=== PATIENT | male | born 1960 | race Caucasian/White ===

== ENCOUNTER 2018-10-24 10:00 | Outpatient (RCR) | payer BC ==
[2018-08-06 09:27] VITALS: BP 142/97
[2018-08-06] MEDS: LIDOCAINE/SOD BICARB 8.4% SYR ID PRN (09:36)
[2018-08-06] MEDS: [UNRECOGNIZED DRUG - MIXTURE] IVPB PRN (09:38)
[2018-08-13 10:53] VITALS: BP 125/77
[2018-08-13] MEDS: [UNRECOGNIZED DRUG - MIXTURE] IVPB PRN (11:02)
[2018-08-13] MEDS: LIDOCAINE/SOD BICARB 8.4% SYR ID PRN (11:02)
[2018-08-22] MEDS: LIDOCAINE/SOD BICARB 8.4% SYR ID PRN (08:24)
[2018-08-22] MEDS: [UNRECOGNIZED DRUG - MIXTURE] IVPB PRN (08:25)
[2018-08-22 08:26] VITALS: BP 112/78
[2018-08-28] MEDS: LIDOCAINE/SOD BICARB 8.4% SYR ID PRN (08:24)
[2018-08-28] MEDS: [UNRECOGNIZED DRUG - MIXTURE] IVPB PRN (08:24)
[2018-08-28 08:28] VITALS: BP 131/84
[2018-09-05] MEDS: [UNRECOGNIZED DRUG - MIXTURE] IVPB PRN (08:17)
[2018-09-05 08:18] VITALS: BP 136/89
[2018-09-05] MEDS: LIDOCAINE/SOD BICARB 8.4% SYR ID PRN (08:18)
[2018-09-12] MEDS: [UNRECOGNIZED DRUG - MIXTURE] IVPB PRN (10:39)
[2018-09-12] MEDS: LIDOCAINE/SOD BICARB 8.4% SYR ID PRN (10:45)
[2018-09-12 10:49] VITALS: BP 126/74
[2018-09-18] MEDS: [UNRECOGNIZED DRUG - MIXTURE] IVPB PRN (08:27)
[2018-09-18] MEDS: LIDOCAINE/SOD BICARB 8.4% SYR ID PRN (08:28)
[2018-09-18 08:30] VITALS: BP 126/91
[2018-09-26] MEDS: LIDOCAINE/SOD BICARB 8.4% SYR ID PRN (14:22)
[2018-09-26] MEDS: [UNRECOGNIZED DRUG - MIXTURE] IVPB PRN (14:26)
[2018-09-26 14:27] VITALS: BP 105/60
[2018-09-26 14:46] VITALS: BP 105/71
[2018-10-02 14:02] VITALS: BP 154/90
[2018-10-02] MEDS: LIDOCAINE/SOD BICARB 8.4% SYR ID PRN (14:08)
[2018-10-02] MEDS: [UNRECOGNIZED DRUG - MIXTURE] IVPB PRN (14:20)
[2018-10-09 14:20] VITALS: BP 126/92
[2018-10-09] MEDS: [UNRECOGNIZED DRUG - MIXTURE] IVPB PRN (14:20)
[2018-10-09] MEDS: LIDOCAINE/SOD BICARB 8.4% SYR ID PRN (14:21)
[2018-10-14 14:55] VITALS: BP 134/87
[2018-10-14] MEDS: [UNRECOGNIZED DRUG - MIXTURE] IVPB PRN (15:49)
[2018-10-14] MEDS: LIDOCAINE/SOD BICARB 8.4% SYR ID PRN (15:49)
[~2018-10-24 10:00] MED LIST: ADV250/50 INH; ASPI-1471 PO; ASPI-715 PO; ASPI81TA94 PO; ATOR10TA65 PO; BUDE10.25 IH; CALC-965 PO; CIP500 PO; DEXTROSE 5%(*) 100 ML BAG 100 ML IVPB PRN; FLUT16SP19 NS; FLUT1DIS27 IH; FLUT1DIS28 IH; FLUT9.9S; GELA600C5 PO; IBUP200C74 PO; LEVO-85 PO; LEVO750T44 PO; LISI-362 PO; LISI5TAB25 PO; MON10 PO; MONT10TA PO; MONT10TA4 PO; NITR0.4T3 SL; NS(*) 0.9% 100 ML BAG 100 ML IVPB PRN; OMEG500C7 PO; PRAV40TA78 PO; PRED20TA6 PO; ROS10 PO; SILD25TA6 PO; SUMA100T32 PO; TRI40I IM; [UNRECOGNIZED DRUG - CODE] IV; [UNRECOGNIZED DRUG - MIXTURE] IVPB PRN
[2018-10-24 10:14] VITALS: BP 128/85
[2018-10-24] MEDS: LIDOCAINE/SOD BICARB 8.4% SYR ID PRN (10:26)
[2018-10-24] MEDS: [UNRECOGNIZED DRUG - MIXTURE] IVPB PRN (10:26)
[2018-10-29] MEDS ORDERED: TRI40I INTRA-ART (11:40)
[2018-11-01] MEDS: LIDOCAINE/SOD BICARB 8.4% SYR ID PRN (08:30)
[2018-11-01] MEDS: [UNRECOGNIZED DRUG - MIXTURE] IVPB PRN (08:30)
[2018-11-01 08:44] VITALS: BP 137/96
== END 2018-11-03 ==
LOC: SPU 10:00
PROVIDERS: ATTEND Emergency Medicine
DX: E88.01 Alpha-1-antitrypsin deficiency (principal)
CPT/HCPCS: 96365; 96366; J0256

== ENCOUNTER 2019-01-29 08:00 | Outpatient (RCR) | payer BC ==
[2018-11-08 11:45] VITALS: BP 125/91
[2018-11-08] MEDS: [UNRECOGNIZED DRUG - MIXTURE] IVPB PRN (11:57)
[2018-11-08 11:58] LABS: PLATELET COUNT, AUTOMATED 274 K/uL (150-450)
[2018-11-26] MEDS: [UNRECOGNIZED DRUG - MIXTURE] IVPB PRN (15:29)
[2018-11-26] MEDS: LIDOCAINE/SOD BICARB 8.4% SYR ID PRN (15:29)
[2018-11-26 15:30] VITALS: BP 142/78
[2018-12-03 14:06] VITALS: BP 126/77
[2018-12-03] MEDS: [UNRECOGNIZED DRUG - MIXTURE] IVPB PRN (14:08)
[2018-12-03] MEDS: LIDOCAINE/SOD BICARB 8.4% SYR ID PRN (14:08)
[2018-12-12] MEDS: LIDOCAINE/SOD BICARB 8.4% SYR ID PRN (08:22)
[2018-12-12] MEDS: [UNRECOGNIZED DRUG - MIXTURE] IVPB PRN (08:22)
[2018-12-12 08:31] VITALS: BP 136/95
[2018-12-19] MEDS: [UNRECOGNIZED DRUG - MIXTURE] IVPB PRN (14:30)
[2018-12-19] MEDS: LIDOCAINE/SOD BICARB 8.4% SYR ID PRN (14:31)
[2018-12-19 14:32] VITALS: BP 134/90
[2018-12-26 13:11] VITALS: BP 152/92
[2018-12-26] MEDS: LIDOCAINE/SOD BICARB 8.4% SYR ID PRN (13:18)
[2018-12-26] MEDS: [UNRECOGNIZED DRUG - MIXTURE] IVPB PRN (13:19)
[2018-12-26 14:36] VITALS: BP 129/85
[2019-01-02 08:43] VITALS: BP 128/84
[2019-01-02] MEDS: [UNRECOGNIZED DRUG - MIXTURE] IVPB PRN (08:59)
[2019-01-02] MEDS: LIDOCAINE/SOD BICARB 8.4% SYR ID PRN (08:59)
[2019-01-09] MEDS: LIDOCAINE/SOD BICARB 8.4% SYR ID PRN (15:38)
[2019-01-09] MEDS: [UNRECOGNIZED DRUG - MIXTURE] IVPB PRN (15:38)
[2019-01-09 15:47] VITALS: BP 140/82
[2019-01-17] MEDS: [UNRECOGNIZED DRUG - MIXTURE] IVPB PRN (09:07)
[2019-01-17 09:11] VITALS: BP 138/76
[2019-01-17] MEDS: LIDOCAINE/SOD BICARB 8.4% SYR ID PRN (09:27)
[2019-01-17 10:40] VITALS: BP 129/85
[2019-01-21 12:27] VITALS: BP 132/88
[2019-01-21] MEDS: [UNRECOGNIZED DRUG - MIXTURE] IVPB PRN (12:38)
[2019-01-21] MEDS: LIDOCAINE/SOD BICARB 8.4% SYR ID PRN (12:38)
[~2019-01-29 08:00] MED LIST changes: -ROS10 PO; +ROSU10TA PO; +TRI40I INTRA-ART; +[UNRECOGNIZED DRUG - MIXTURE] IVPB PRN; -[UNRECOGNIZED DRUG - MIXTURE] IVPB PRN
--- NOTE | 2019-01-29 08:28 | NUR ---
Pt completed initial HADS. No concerns, both A & D in normal range.
[2019-01-29 08:31] VITALS: BP 133/86
[2019-01-29] MEDS: LIDOCAINE/SOD BICARB 8.4% SYR ID PRN (08:38)
[2019-01-29] MEDS: [UNRECOGNIZED DRUG - MIXTURE] IVPB PRN (08:43)
== END 2019-02-05 ==
LOC: SPU 08:00
PROVIDERS: ATTEND Emergency Medicine
DX: E88.01 Alpha-1-antitrypsin deficiency (principal); J96.11 Chronic respiratory failure with hypoxia; J43.1 Panlobular emphysema
CPT/HCPCS: 85025; 96365; 96366; 96374; J0256; 82040; 82247; 82310; 82374; 82435; 82565; 82947; 84075; 84132; 84155; 84295; 84450; 84460; 84520

== ENCOUNTER 2019-02-06 07:45 | Outpatient (RCR) | payer BC ==
[~2019-02-06 07:45] MED LIST changes: -[UNRECOGNIZED DRUG - MIXTURE] IVPB PRN
[2019-02-06] MEDS: [UNRECOGNIZED DRUG - MIXTURE] IVPB PRN (08:25)
[2019-02-06] MEDS: LIDOCAINE/SOD BICARB 8.4% SYR ID PRN (08:28)
[2019-02-12 12:17] VITALS: BP 112/80
[2019-02-12] MEDS: LIDOCAINE/SOD BICARB 8.4% SYR ID PRN (12:25)
[2019-02-12] MEDS: [UNRECOGNIZED DRUG - MIXTURE] IVPB PRN (12:26)
[2019-02-12 13:29] VITALS: BP_SYST 124; BP_SYST 132; BP_DIAS 80; BP_DIAS 81
[2019-02-20 08:31] VITALS: BP 143/92
[2019-02-20] MEDS: [UNRECOGNIZED DRUG - MIXTURE] IVPB PRN (08:31)
[2019-02-20] MEDS: LIDOCAINE/SOD BICARB 8.4% SYR ID PRN (08:31)
[2019-02-20 09:33] VITALS: BP 139/92
== END 2019-02-24 16:54 | disposition home or self-care (01) ==
LOC: SPU 07:45
PROVIDERS: ATTEND Emergency Medicine
DX: E88.01 Alpha-1-antitrypsin deficiency (principal)
CPT/HCPCS: 96365; J0256

== ENCOUNTER → 2019-02-26 | Outpatient (CLI) | payer BC ==
[~2019-02-26] MED LIST changes: -DEXTROSE 5%(*) 100 ML BAG 100 ML IVPB PRN; -NS(*) 0.9% 100 ML BAG 100 ML IVPB PRN
[2019-02-26 08:34] LABS: PLATELET COUNT, AUTOMATED 175 K/uL (150-450)
[2019-02-26 08:42] LABS: LDL CHOLESTEROL 120 mg/dl
== END ==
LOC: SPU 07:39
PROVIDERS: ATTEND Emergency Medicine
DX: Z12.5 Encounter for screening for malignant neoplasm of prostate (principal); I10 Essential (primary) hypertension; D75.1 Secondary polycythemia; E88.01 Alpha-1-antitrypsin deficiency; J96.11 Chronic respiratory failure with hypoxia
CPT/HCPCS: 82040; 82247; 82310; 82374; 82435; 82465; 82565; 82947; 83718; 84075; 84132; 84153; 84155; 84295; 84450; 84460; 84478; 84520; 85025

== ENCOUNTER → 2019-04-15 | Outpatient (CLI) | payer BC | LOC: US 01:03 | PROVIDERS: ATTEND Emergency Medicine | DX: I51.7 Cardiomegaly (principal) | CPT/HCPCS: 93306 ==

== ENCOUNTER 2019-05-20 14:58 | Outpatient (RCR) | payer BC ==
[2019-02-26 08:32] VITALS: BP 118/82
[2019-02-26] MEDS: [UNRECOGNIZED DRUG - MIXTURE] IVPB PRN (08:35)
[2019-02-26] MEDS: LIDOCAINE/SOD BICARB 8.4% SYR ID PRN (08:35)
[2019-03-04] MEDS: LIDOCAINE/SOD BICARB 8.4% SYR ID PRN ×2 (09:18→09:36)
[2019-03-04] MEDS: [UNRECOGNIZED DRUG - MIXTURE] IVPB PRN ×2 (09:19→09:37)
[2019-03-04 09:20] VITALS: BP 121/76
[2019-03-10] MEDS: [UNRECOGNIZED DRUG - MIXTURE] IVPB PRN (15:21)
[2019-03-10 15:22] VITALS: BP 132/100
[2019-03-10] MEDS: LIDOCAINE/SOD BICARB 8.4% SYR ID PRN (15:22)
[2019-03-10 16:22] VITALS: BP 130/81
[2019-03-19 14:00] VITALS: BP 127/81
[2019-03-19] MEDS: LIDOCAINE/SOD BICARB 8.4% SYR ID PRN (14:01)
[2019-03-19] MEDS: [UNRECOGNIZED DRUG - MIXTURE] IVPB PRN (14:35)
[2019-03-28 13:30] VITALS: BP 129/85
[2019-03-28] MEDS: LIDOCAINE/SOD BICARB 8.4% SYR ID PRN (13:31)
[2019-03-28] MEDS: [UNRECOGNIZED DRUG - MIXTURE] IVPB PRN (13:31)
[2019-04-03] MEDS: [UNRECOGNIZED DRUG - MIXTURE] IVPB PRN (08:15)
[2019-04-03 08:16] VITALS: BP 111/71
[2019-04-03] MEDS: LIDOCAINE/SOD BICARB 8.4% SYR ID PRN (08:16)
[2019-04-03 09:06] VITALS: BP 105/76
[2019-04-09 13:42] VITALS: BP 133/86
[2019-04-09] MEDS: [UNRECOGNIZED DRUG - MIXTURE] IVPB PRN (14:07)
[2019-04-09] MEDS: LIDOCAINE/SOD BICARB 8.4% SYR ID PRN (14:07)
[2019-04-15 14:25] VITALS: BP 127/82
[2019-04-15] MEDS: [UNRECOGNIZED DRUG - MIXTURE] IVPB PRN (14:27)
[2019-04-15] MEDS: LIDOCAINE/SOD BICARB 8.4% SYR ID PRN (14:42)
[2019-04-21] MEDS: LIDOCAINE/SOD BICARB 8.4% SYR ID PRN (08:50)
[2019-04-21 08:51] VITALS: BP 135/92
[2019-04-21] MEDS: [UNRECOGNIZED DRUG - MIXTURE] IVPB PRN (09:06)
[2019-04-28 16:03] VITALS: BP 129/86
[2019-04-28] MEDS: LIDOCAINE/SOD BICARB 8.4% SYR ID PRN (16:09)
[2019-04-28] MEDS: [UNRECOGNIZED DRUG - MIXTURE] IVPB PRN (16:09)
[2019-05-08] MEDS: [UNRECOGNIZED DRUG - MIXTURE] IVPB PRN (15:02)
[2019-05-08] MEDS: LIDOCAINE/SOD BICARB 8.4% SYR ID PRN (15:02)
[2019-05-13 15:03] VITALS: BP 115/81
[2019-05-13] MEDS: LIDOCAINE/SOD BICARB 8.4% SYR ID PRN (15:10)
[2019-05-13] MEDS: [UNRECOGNIZED DRUG - MIXTURE] IVPB PRN (15:11)
[~2019-05-20 14:58] MED LIST changes: +DEXTROSE 5%(*) 100 ML BAG 100 ML IVPB PRN; +NS(*) 0.9% 100 ML BAG 100 ML IVPB PRN
[2019-05-20] MEDS: [UNRECOGNIZED DRUG - MIXTURE] IVPB PRN (15:15)
[2019-05-20] MEDS: LIDOCAINE/SOD BICARB 8.4% SYR ID PRN (15:15)
[2019-05-20 15:19] VITALS: BP 139/89
[2019-05-26 15:43] VITALS: BP 147/92
[2019-05-26] MEDS: [UNRECOGNIZED DRUG - MIXTURE] IVPB PRN (15:53)
== END 2019-05-26 ==
LOC: SPU 14:58
PROVIDERS: ATTEND Internal Medicine
DX: E88.01 Alpha-1-antitrypsin deficiency (principal)
CPT/HCPCS: 96365; J0256; 96366